=== PATIENT | male | born 1985 | race Caucasian/White ===

== ENCOUNTER 2023-12-22 14:11 | Outpatient (CLI) | payer BC ==
[~2023-12-22] VITALS: Ht 185.4 cm; Wt 117.9 kg
[2023-12-22 15:28] LABS: BASOPHILS % (AUTO) 0.3 % (0-1); EOSINOPHILS # (AUTO) 0.1 X10'3 (0-0.9); EOSINOPHILS % (AUTO) 0.5 % (0-6); LYMPHOCYTES # (AUTO) 2.1 X10'3 (1.1-4.8); LYMPHOCYTES % (AUTO) 16.1 % (21-51); MEAN CORPUSCULAR HEMOGLOBIN 27.4 PG (27.0-31.0); MEAN CORPUSCULAR HGB CONC 32.3 g/dL (33.0-36.5); MEAN CORPUSCULAR VOLUME 84.6 FL (78-98); MEAN PLATELET VOLUME 6.9 FL (7.4-10.4); MONOCYTES % (AUTO) 7.9 % (2-12); NEUTROPHILS # (AUTO) 9.8 X10'3 (1.8-7.7); NEUTROPHILS % (AUTO) 75.2 % (42-75); PRE OP HEMATOCRIT 47.1 % (42.0-52.0); PRE OP HEMOGLOBIN 15.2 g/dL (14.0-17.9); PRE OP PLATELET COUNT 310 X10'3 (140-440); RED BLOOD COUNT 5.57 X10'6 (4.70-6.10); RED CELL DISTRIBUTION WIDTH 13.2 % (11.5-14.5)
[2023-12-22 15:47] LABS: ALBUMIN 4.1 G/DL (3.4-5.0); ALKALINE PHOSPHATASE 84 IU/L (46-116); BLOOD UREA NITROGEN 8 MG/DL (7-18); BUN/CREATININE RATIO 8.2 (10.0-20.0); CALCIUM 9.6 MG/DL (8.5-10.1); CHLORIDE 100 MMOL/L (99-107); CREATININE 0.97 MG/DL (0.60-1.10); PRE OP ALT 27 U/L (30-65); PRE OP ANION GAP 7 (8-16); PRE OP AST 10 U/L (10-37); PRE OP BILIRUB, TOTAL 0.8 MG/DL (0.0-1.0); PRE OP GLUCOSE 91 MG/DL (70-104); PRE OP POTASSIUM 3.9 MMOL/L (3.4-5.1); PRE OP SODIUM 138 MMOL/L (135-145); TOTAL PROTEIN 8.4 G/DL (6.4-8.2); eGFR 88 ML/MIN
[2023-12-22] MEDS ORDERED: TRAM50TA2 PO (17:00)
[2023-12-22] MEDS ORDERED: ESCI-8 PO (17:00)
[2023-12-22] MEDS ORDERED: LISD20CA (17:00)
[2023-12-22] MEDS ORDERED: DOCU100C40 PO (17:00)
[2023-12-22] MEDS ORDERED: BUPR-317 (17:00)
[2023-12-22] MEDS ORDERED: RIME75TA SL (17:00)
[2023-12-22] MEDS ORDERED: TIZA-205 PO (17:00)
[2023-12-22] MEDS ORDERED: PANT40TA54 PO (17:00)
[2023-12-24] MEDS ORDERED: ringers solution, lacted 1,000 ML IV SCH (05:30)
[2023-12-24] MEDS ORDERED: famotidine 20mg tablet PO ONE (05:30)
[2023-12-24] MEDS ORDERED: cefazolin 2gm/D5W 100mL 100 ML IV ONE (05:30)
== END 2023-12-22 23:59 | disposition home or self-care (01) ==
LOC: LAB 14:11 → EDSTATUS 12-24 08:30
PROVIDERS: ATTEND Surgery
DX: Z01.818 Encounter for other preprocedural examination (principal); K44.9 Diaphragmatic hernia without obstruction or gangrene
CPT/HCPCS: 36415; 80053; 85025; 93005; J0690; J7120

== ENCOUNTER 2024-01-21 05:56 | Observation (INO) | payer BC ==
[~2024-01-21] VITALS: Ht 185.4 cm; Wt 121.0 kg
[2024-01-21] VITALS (41 sets, daily range): BP systolic 116–170; BP diastolic 80–121; PULSE 47–108; RESP 10–21; TEMP 97–97.8; O2SAT 90–98
[2024-01-21] MEDS: famotidine 20mg tablet PO ONE (05:30)
[2024-01-21] MEDS: cefazolin 2gm/D5W 100mL 100 ML IV ONE (05:30)
[2024-01-21] MEDS: ringers solution, lacted 1,000 ML IV SCH ×3 (05:30→10:10)
[~2024-01-21 05:56] MED LIST: BUPR-561; DOCU100C40 PO; ESCI-8 PO; LISD20CA; PANT40TA54 PO; RIME75TA SL; TIZA-205 PO; TRAM50TA2 PO
[2024-01-21 07:18] LABS: BASOPHILS % (AUTO) 0.4 % (0-1); EOSINOPHILS # (AUTO) 0.2 X10'3 (0-0.9); EOSINOPHILS % (AUTO) 1.8 % (0-6); LYMPHOCYTES # (AUTO) 2.9 X10'3 (1.1-4.8); LYMPHOCYTES % (AUTO) 32.4 % (21-51); MEAN CORPUSCULAR HEMOGLOBIN 27.3 PG (27.0-31.0); MEAN CORPUSCULAR HGB CONC 32.1 g/dL (33.0-36.5); MEAN CORPUSCULAR VOLUME 85.2 FL (78-98); MONOCYTES # (AUTO) 0.7 X10'3 (0-0.9); NEUTROPHILS # (AUTO) 5.1 X10'3 (1.8-7.7); NEUTROPHILS % (AUTO) 57.4 % (42-75); PRE OP HEMATOCRIT 41.3 % (42.0-52.0); PRE OP HEMOGLOBIN 13.2 g/dL (14.0-17.9); PRE OP PLATELET COUNT 267 X10'3 (140-440); RED BLOOD COUNT 4.85 X10'6 (4.70-6.10); RED CELL DISTRIBUTION WIDTH 13.7 % (11.5-14.5)
[2024-01-21] MEDS ORDERED: fentaNYL /PF 50mcg/ml 5ml ampule ONE (07:28)
[2024-01-21] MEDS ORDERED: propofol inj 20 ML IV ONE (07:28)
[2024-01-21] MEDS ORDERED: midazolam 1 mg/ML 2ml injection ONE (07:28)
[2024-01-21] MEDS ORDERED: sevoflurane 250ml liquid IH ONE (07:34)
[2024-01-21 07:36] LABS: ALBUMIN 3.3 G/DL (3.4-5.0); ALKALINE PHOSPHATASE 58 IU/L (46-116); BLOOD UREA NITROGEN 10 MG/DL (7-18); BUN/CREATININE RATIO 10.9 (10.0-20.0); CALCIUM 8.6 MG/DL (8.5-10.1); CHLORIDE 107 MMOL/L (99-107); CREATININE 0.92 MG/DL (0.60-1.10); PRE OP ALT 28 U/L (30-65); PRE OP ANION GAP 5 (8-16); PRE OP AST 21 U/L (10-37); PRE OP BILIRUB, TOTAL 0.3 MG/DL (0.0-1.0); PRE OP GLUCOSE 74 MG/DL (70-104); PRE OP POTASSIUM 3.9 MMOL/L (3.4-5.1); PRE OP SODIUM 140 MMOL/L (135-145); TOTAL CARBON DIOXIDE 28.5 MMOL/L (24-32); TOTAL PROTEIN 6.7 G/DL (6.4-8.2); eCRCL 125 ML/MIN; eGFR > 90 ML/MIN
[2024-01-21] MEDS: LIDOcaine 1% 30ml preserv. free vial ONE (08:14)
[2024-01-21] MEDS: BUPIVAcaine/PF 2.5mg/ml (0.25%) 10ml vial ONE (08:14)
[2024-01-21] MEDS ORDERED: rocuronium 10mg/ml inj IV ONE ×2 (09:33)
[2024-01-21] MEDS ORDERED: ondansetron/PF 4mg/2ml inj ONE (09:34)
[2024-01-21] MEDS ORDERED: acetaminophen 1,000mg/100ml IV 100 ML IV ONE (09:34)
[2024-01-21] MEDS ORDERED: dexamethasone sod phosphate 4mg/ml inj. ONE (09:34)
[2024-01-21] MEDS ORDERED: neostigmine methylsulfate 1 MG/ML 10ml vial ONE (09:36)
[2024-01-21] MEDS ORDERED: glycopyrrolate 0.2mg/ml inj ONE (09:37)
[2024-01-21] MEDS ORDERED: proCHLORperazine 10 MG/2 ml inj IV PRN (10:05)
[2024-01-21] MEDS ORDERED: morphine 2 MG/ML inj. syringe IV PRN (10:05)
[2024-01-21] MEDS ORDERED: naloxone 0.4 mg/ml inj IV PRN (10:05)
[2024-01-21] MEDS: normal saline 1000ml 1,000 ML IV SCH (10:05)
[2024-01-21] MEDS ORDERED: meperidine/PF 25mg/ml syringe IV PRN ×2 (10:05)
[2024-01-21] MEDS ORDERED: ondansetron/PF 4mg/2ml inj IV PRN ×2 (10:05)
[2024-01-21] MEDS ORDERED: morphine/NS PCA 1mg/ml 50ml 50 ML IV SCH (10:05)
[2024-01-21] MEDS: labetalol 20mg/4ml (5mg/ml) syringe IV PRN (10:09)
[2024-01-21] MEDS: meperidine/PF 25mg/ml syringe IV PRN (10:09)
[2024-01-21] MEDS: morphine 4 MG/ML inj SYRINge IV PRN (10:15)
[2024-01-21] MEDS: HYDROmorph/NS 0.2 mg/ml PCA 100 ML IV SCH (10:43)
[2024-01-21] MEDS: enalaprilat dihydrate 2.5mg/2ml vial IV PRN (10:54)
[2024-01-21] MEDS ORDERED: tizanidine 4mg tablet PO PRN (17:15)
[2024-01-21] MEDS: heparin, porcine 5000 units/ml vial SQ SCH (20:00)
[2024-01-22 02:00] VITALS: BP 127/78; PULSE 62; RESP 12; TEMP 97.6; O2SAT 93
[2024-01-22 06:33] VITALS: BP 127/76; PULSE 69; RESP 18; TEMP 97.6; O2SAT 94
[2024-01-22] MEDS: buPROPion SR 150mg tablet PO SCH (08:45)
[2024-01-22] MEDS: lisdexamfetamine dimesylate 10mg capsule PO SCH (08:45)
[2024-01-22] MEDS: ESCITALOPRAM 10 mg tablet 10 MG TABLET PO SCH (08:45)
[2024-01-22] MEDS: oxyCODONE/APAP 5-325mg tablet PO PRN (08:46)
[2024-01-22 10:00] VITALS: BP 154/96; PULSE 68; RESP 16; TEMP 98.2; O2SAT 96
[2024-01-22] MEDS: PCA WASTE DOCUMENTATION 1 MG ML MC SCH (10:33)
[2024-01-22] MEDS: HYDROmorphone inj. 0.5 MG/0.5 ML DISP.SYRIN IV ONE (12:21)
[2024-01-22 15:08] VITALS: RESP 16
[2024-01-22] MEDS ORDERED: oxyCODONE/APAP 5-325mg tablet PO PRN (15:40)
[2024-01-22] MEDS ORDERED: PER5325T PO (15:41)
[2024-01-22] MEDS: oxyCODONE/APAP 5-325mg tablet PO ONE (16:17)
== END 2024-01-22 17:26 | disposition home or self-care (01) ==
LOC: PAS 05:56 → PACU 10:08 → SUR 3N 15:20
PROVIDERS: ADMIT Surgery; ATTEND Surgery
DX: K44.9 Diaphragmatic hernia without obstruction or gangrene (principal); Z20.822 Contact with and (suspected) exposure to COVID-19; K21.9 Gastro-esophageal reflux disease without esophagitis; G43.909 Migraine, unspecified, not intractable, without status migrainosus; Z79.899 Other long term (current) drug therapy
CPT/HCPCS: 36415; 43282; 71045; 80053; 85025; 96365; 96366; 96372; 96375; 96376; C1781; G0378; J0131; J0690; J1100; J1170; J1644; J2175; J2250; J2270; J2405; J2704; J2710; J3010; J3490; J7120; A4615; A4618